=== PATIENT | female | born 2005 | race African-American/Black ===

== ENCOUNTER 2025-03-31 12:13 | Emergency (ER) | payer MEDICAID ==
[~2025-03-31] VITALS: Ht 157.5 cm; Wt 59.1 kg
[2025-03-31 12:20] VITALS: TEMP 98.1
--- NOTE | 2025-03-31 13:05 | RADIOLOGY REPORT ---
CLINICAL INDICATION: KNEE PAIN TECHNIQUE: 4 radiographic views of the right knee were obtained. Comparison: None FINDINGS/IMPRESSION: There is no evidence of acute fracture or dislocation. The visualized joint space is well maintained. The alignment is anatomical. There is no radiopaque foreign body.
--- NOTE | 2025-03-31 14:14 | Physician Documentation ---
History of Present Illness ~ Chief Complaint: Knee Pain Stated Complaint: KNEE PAIN Time Seen by MD: 14:03 OK to notify your PCP?: Yes Source: patient Mode of Arrival: POV Exam Limitations: no limitations HPI 20-year-old female presents for right knee pain for the past 3 years. She has no new trauma to that knee she states that it has mild pain with ambulation. She has been trying to take Tylenol and ibuprofen with no relief. She says that she was taking a stronger medication but that seems to no longer be working but she does not remember the name of that. Tetanus witin 5 years: No Medication Reconciliation Allergies: Coded Allergies: amoxicillin (Unverified Allergy, Unknown, 03/31/25) Review of Systems All Other Systems at this time: Reviewed and Negative Physical Exam Vital Signs: RN Vital Signs have been reviewed: Yes, Temperature: 98.1, Source: Oral, Heart Rate: 97, Respiratory Rate: 18, BP: 116/76, Pulse Oximetry: 99, Weight: 59.090 Pulse Oximetry Reflects: adequate oxygenation Physical Exam General: Alert, no distress. HEENT: No injection, moist mucous membranes. Neck: Full range of motion. Respiratory: No respiratory distress, equal chest rise and fall. Chest: No accessory muscle use. Cardiovascular: Regular rate and rhythm. Gastrointestinal: Nondistended. Extremities: Normal range of motion, no deformity of right knee. Point tenderness to the distal portion of the right knee. Erythema or edema of right knee Neurologic: Oriented x4. Psychiatric: Normal mood and affect. Skin: Normal color, warm and dry. Progress Results/Orders Reviewed/noted all lab results: Yes Results/Orders Vital Signs 03/31/25 12:20 Temp 98.1 Pulse 97 Resp 18 B/P (MAP) 116/76 Pulse Ox 99 EKG/XRAY/CT/US/VASC/MRI Bone/Soft Tissue X-Ray (Ext.) : Additional Comment Right knee x-ray as interpreted by me; no joint effusion, no acute fracture, no soft tissue swelling, no dislocation, or foreign body. Medical Decision Making Additional info obtained from: old records Findings 20-year-old female presents with chronic right knee pain for the past 3 years. She was taking a stronger pain medication which no longer appears to be working but she does not know the name. We discussed that the treatment for chronic knee pain is Tylenol and ibuprofen as well as rest/ice/heat and compression while ambulation can be helpful. We discussed that her x-ray results were normal but that she may benefit from outpatient imaging such as an MRI which she can obtain through her primary care provider. She should return back here for any new or worsening symptoms and follow up with primary care within the next we ek. I gave her Tylenol and ibuprofen while here in the department for pain relief Departure Disposition: HOME / SELF CARE / HOMELESS Impression: Primary Impression: Chronic knee pain Condition: Stable Discharge Instructions: Chronic Knee Pain, Adult, [id number] Additional Instructions: Follow up with the primary care provider within the next week and return back here for any new or worsening symptoms. As we discussed your x-ray was normal for your right knee by you may benefit from outpatient imaging such as an MRI which can be obtained through your primary care provider. Continue to use ice/heat/ice elevation and compression and rest as well as Tylenol and ibuprofen for pain relief. Referrals: NO PRIMARY CARE PROVIDER (PCP) Education Educated: Patient Educated regarding: diagnosis, treatment, prognosis, need for follow up Additional Comment Medical Screen Exam This patient recieved a medical screening examination. After reviewing the individual's medical complaints with presenting symptoms and performing an appropriate physical examination, it was determined that no immediate life- threatening emergency medical condition is present. This individual is also not a women having contractions. Signature Scribe Signature: . Attestation: Scribed for Manisha Vegas by Manisha Salazar NP . 03/31/25 14:14 Parts of this note were created using [employer] voice recognition software program. While efforts were made to correct any mistakes made by this voice recognition software program, nonsensical phrases may remain in this note. In addition, there may be errors and syntax, grammar, content and spelling. MANISHA VEGASP Mar 31, 2025 14:14
[2025-03-31 14:22] VITALS: BP 116/76; PULSE 97; RESP 16; O2SAT 99
[2025-03-31] MEDS: ibuprofen tablet 400 MG TABLET PO ONE (14:28)
== END 2025-03-31 14:32 | disposition home or self-care (01) ==
LOC: ER 12:14
DX: G89.29 Other chronic pain (principal); M25.561 Pain in right knee; Z88.1 Allergy status to other antibiotic agents
CPT/HCPCS: 73564; 99283

== ENCOUNTER 2025-08-27 19:08 | Emergency (ER) | payer MEDICAID ==
[~2025-08-27] VITALS: Ht 157.5 cm; Wt 55.6 kg
[2025-08-27 19:13] VITALS: BP 123/69; PULSE 96; RESP 16; TEMP 98.3; O2SAT 99
--- NOTE | 2025-08-27 21:25 | Physician Documentation ---
History of Present Illness ~ Chief Complaint: Groin Pain Stated Complaint: GROIN PAIN Time Seen by MD: 20:33 HPI This is a 20-year-old female who presents with a painful swollen mass to her left groin for the past three days, patient reports no other acute symptoms or concerns including no fever. Medication Reconciliation Allergies: Coded Allergies: amoxicillin (Unverified Allergy, Unknown, 03/31/25) Scheduled Cephalexin*Monohydrate* (Keflex*), 1 CAP PO QID Past Medical History Past Medical History: No Pertinent History Review of Systems ROS As stated above in the HPI, otherwise all systems are reviewed and negative. Physical Exam Vital Signs: Temperature: 98.3, Source: Oral, Heart Rate: 96, Respiratory Rate: 16, BP: 123/69, Pulse Oximetry: 99, Weight: 55.600 Oxygen Flow Rate: 0 Physical Exam VITALS: Reviewed and as above. GENERAL: Alert, nontoxic appearing, no apparent distress. RESPIRATORY: No increased work of breathing, no respiratory distress, speaking in full clear sentences SKIN: Left inguinal fold approximately 1 cm round firm semi mobile tender mass consistent with isolated lymphadenopathy Exam chaperoned by RADHA De Guzman Progress Results/Orders Results/Orders Orders - RULA HART D[employer]LL R[employer] OPERATOR HELPER Us Soft Tissue Mass (08/27/25 21:22) Completed Orders - RULA HART DRILL R[employer] OPERATOR HELPER Us Soft Tissue Mass (08/27/25 21:22) Cephalexin Capsule (Keflex Capsule) (08/27/25 23:15) Vital Signs 08/27/25 19:13 Temp 98.3 Pulse 96 Resp 16 B/P (MAP) 123/69 Pulse Ox 99 O2 Flow Rate 0 EKG/XRAY/CT/US/VASC/MRI Ultrasound : Impression Exam: US SOFT TISSUE MASS EXAM: US US SOFT TISSUE MASS CLINICAL HISTORY: Left groin pain and swelling COMPARISON: None TECHNIQUE: Targeted sonographic evaluation of the soft tissues of the left inguinal region was obtained utilizing grayscale and color Doppler imaging. Findings/Impression: Multiple prominent lymph nodes within the region of interest, the largest of which measures 2.0 x 1.3 x 1.2 cm. Increased vascularity noted. There is no evidence for drainable collection. There is otherwise no evidence for solid or cystic mass in the site. No vascular abnormalities identified at this site. Electronically Signed by:ALF CASTELLON MD Date & Time: 08/28/2523 Dictated by: ALF CASTELLON MD Dictation date and time: 08/28/2523 Medical Decision Making Additional information obtaine: N/A Findings This 20-year-old female presented with a painful mass to her left groin for the past three days, physical exam demonstrated lymphadenopathy, an ultrasound of the area was obtained additionally demonstrating lymphadenopathy, given patient is otherwise well-appearing and the acute development of unilateral lymphadenopathy suspect occult infection likely of skin chuck to the left lower extremity therefore treatment with oral antibiotic indicated. Patient is he modynamically stable and appropriate for outpatient follow up. Patient advised to follow up promptly with primary care for re-evaluation of lymphadenopathy after course of oral antibiotics and provided careful return to care precautions and home care instructions which she verbalized understanding of. Urinary Diff Dx:Considerations: Include: Strain, Urinary Obstruction, Urolithiasis, Urinary retention, UTI, Vaginitis Genital Diff Dx:Considerations: Include: Bartholin abscess, Bartholin cyst, UTI, Vaginitis, Other (Hernia) Departure Time of Disposition: 23:30 Disposition: HOME / SELF CARE / HOMELESS Impression: Primary Impression: Inguinal lymphadenopathy Condition: Improved Discharge Instructions: Lymphadenopathy Additional Instructions: As we have discussed it is likely your swelling to the area is related to early infection that your body is fighting off, please use the prescribed antibiotics. If the pain and swelling does not go away in seven days please follow up with your primary care provider for further evaluation. Please follow up with your primary care provider in the next few days. Please return to the emergency department for any new or worsening concerning symptoms. Referrals: NO PRIMARY CARE PROVIDER (PCP) Prescriptions Cephalexin*Monohydrate* (Keflex*) 500 Mg Capsule 1 CAP PO QID for 5 Days, #20 CAP Prov: RULA HART 08/27/25 Education Educated: Patient Educated regarding: diagnosis, treatment, prognosis, need for follow up Signature Scribe Signature: No scribe Attestation: The note accurately reflects work and decisions made by me.MORENO Tarango 08/28/25 12:37 RULA HART Aug 27, 2025 21:25
[2025-08-27] MEDS ORDERED: CEPH-585 PO (23:32)
--- NOTE | 2025-08-28 00:26 | RADIOLOGY REPORT ---
EXAM: US US SOFT TISSUE MASS CLINICAL HISTORY: Left groin pain and swelling COMPARISON: None TECHNIQUE: Targeted sonographic evaluation of the soft tissues of the left inguinal region was obtained utilizing grayscale and color Doppler imaging. Findings/Impression: Multiple prominent lymph nodes within the region of interest, the largest of which measures 2.0 x 1.3 x 1.2 cm. Increased vascularity noted. There is no evidence for drainable collection. There is otherwise no evidence for solid or cystic mass in the site. No vascular abnormalities identified at this site.
== END 2025-08-28 00:14 | disposition home or self-care (01) ==
LOC: ER 19:08
DX: R59.0 Localized enlarged lymph nodes (principal); Z88.0 Allergy status to penicillin
CPT/HCPCS: 76881; 99284